=== PATIENT | female | born 1960 ===

== ENCOUNTER 2018-04-20 12:27 | Emergency (ER) | payer OTHER ==
[2018-04-20] MEDS ORDERED: Sodium Chloride 0.9% 1,000 ML IV STA (13:09)
--- NOTE | 2018-04-20 13:15 | ED PDOC ---
Syncope/Near Syncope/Dizziness Time Seen by Provider: 04/20/18 12:41 Chief Complaint (Nursing): Dizziness/Lightheaded Chief Complaint (Provider): Dizziness History Per: Patient History/Exam Limitations: no limitations Onset/Duration Of Symptoms: Hrs (prior to arrival) Current Symptoms Are (Timing): Better Fall Associated With With Symptoms: No Additional Complaint(s): Eugenie Aldridge is a 57 year old female, with a past medical history of anemia, who presents to the emergency department complaining of dizziness onset prior to arrival. Patient had a biopsy done today, and states after she woke up from it she began feeling dizzy and tremulous like she was about to faint. Patient reports feeling better now. She had a glass of milk for breakfast today. She denies any pain or other medical complaints. PMD: [facility] Past Medical History Reviewed: Historical Data, Nursing Documentation, Vital Signs - Medical History PMH: Anemia - Surgical History Surgical History: No Surg Hx - Family History Family History: States: Unknown Family Hx - Home Medications Home Medications: Ambulatory Orders Medication Instructions Recorded No Known Home Med 04/20/18 - Allergies Allergies/Adverse Reactions: Allergies Allergy/AdvReac Type Severity Reaction Status Date / Time No Known Allergies Allergy Verified 04/20/18 10:14 Review of Systems ROS Statement: Except As Marked, All Systems Reviewed And Found Negative Neurological: Positive for: Dizziness, Other (tremulous) Physical Exam - Reviewed Nursing Documentation Reviewed: Yes Vital Signs Reviewed: Yes - Physical Exam Appears: Positive for: No Acute Distress (anxious ) Head Exam: Positive for: ATRAUMATIC, NORMAL INSPECTION, NORMOCEPHALIC Skin: Positive for: Normal Color, Warm, Dry Eye Exam: Positive for: Normal appearance, EOMI, PERRL ENT: Positive for: Other (dry mucosa and lips) Neck: Positive for: Painless ROM, Supple Cardiovascular/Chest: Positive for: Regular Rate, Rhythm. Negative for: Murmur Respiratory: Positive for: Normal Breath Sounds. Negative for: Respiratory Distress Gastrointestinal/Abdominal: Positive for: Normal Exam, Soft. Negative for: Tenderness Extremity: Positive for: Normal ROM (upper and lower extremities). Negative for : Deformity, Swelling Lymphatic: Negative for: Adenopathy Neurologic/Psych: Positive for: Alert, Oriented. Negative for: Motor/Sensory Deficits - Laboratory Results Result Diagrams: 04/20/18 13:25 04/20/18 13:25 - Progress Re-evaluation Time: 14:10 Condition: Improved Medical Decision Making Medical Decision Making: Time: 12:41 Initial Impression: Dizziness Initial Plan: --CMP --CBC w/ differential --Sodium Chloride 1,000 ml IV 1,000 mls/hr --Reevaluation ----- Scribe Attestation: Documented by Jamaal Quinteros, acting as a scribe for Lia Rangel MD. Provider Scribe Attestation: All medical record entries made by the Scribe were at my direction and personally dictated by me. I have reviewed the chart and agree that the record accurately reflects my personal performance of the history, physical exam, medical decision making, and the department course for this patient. I have also personally directed, reviewed, and agree with the discharge instructions and disposition. Disposition - Clinical Impression Clinical Impression: Dizziness, Anxiety - Patient ED Disposition Is Patient to be Admitted: No Doctor Will See Patient In The: Office Counseled Patient/Family Regarding: Diagnosis, Need For Followup, Rx Given - Disposition Referrals: [facility] [Outside] Disposition: Routine/Home Disposition Time: 14:37 Condition: IMPROVED Instructions: Anxiety, Adult (DC), Dizziness, Nonvertigo, (DC) Forms: Parchment (Syriac) Print Language: PORTUGUESE
[2018-04-20 13:24] VITALS: PULSE 74; RESP 19; TEMP 97.5; O2SAT 99
[2018-04-20 13:38] LABS: BASO # 0.1 K/uL (0.0-0.2); BASO % 0.7 % (0.0-2.0); EOS # 0.3 K/uL (0.0-0.7); EOS % 2.5 % (0.0-4.0); HEMOGLOBIN 11.1 g/dL (12.0-16.0); LYMPH % 44.3 % (20.0-40.0); MEAN CELL VOLUME 87.6 fl (81.0-99.0); MEAN CORPUSCULAR HEMOGLOBIN 28.3 pg (27.0-31.0); MEAN CORPUSCULAR HGB CONC 32.3 g/dL (33.0-37.0); MEAN PLATELET VOLUME 10.1 fl (7.2-11.7); MONO # 0.6 K/uL (0.0-0.8); MONO % 5.1 % (0.0-10.0); NEUT # 5.4 K/uL (1.8-7.0); NEUT % 47.4 % (50.0-75.0); RBC 3.93 Mil/uL (3.80-5.20); RED CELL DISTRIBUTION WIDTH 13.9 % (11.5-14.5); WHITE BLOOD COUNT 11.3 K/uL (4.8-10.8)
[2018-04-20 13:46] LABS: ALB/GLOB RATIO 1.1 (1.0-2.1); ALBUMIN 4.5 g/dL (3.5-5.0); ALT/SGPT 37 U/L (9-52); AST/SGOT 33 U/L (14-36); BLOOD UREA NITROGEN 20 mg/dl (7-17); CALCIUM 9.1 mg/dL (8.4-10.2); GFR NON-AFRICAN AMERICAN > 60
[2018-04-20] MEDS ORDERED: Potassium Chloride 20 mEq ER Tab PO STA (14:14)
[2018-04-20] MEDS ORDERED: Potassium Chloride 20 mEq ER Tab PO ONE ×2 (14:33→14:37)
== END 2018-04-20 14:45 | disposition home or self-care (01) ==
LOC: SUPCPDRO 12:27 → H.ER 12:27
DX: R42 Dizziness and giddiness (principal); F41.9 Anxiety disorder, unspecified
CPT/HCPCS: 80053; 85025; 99284; J7030

== ENCOUNTER 2018-06-29 10:26 | Emergency (ER) | payer OTHER, SELFPAY ==
[2018-06-29 10:33] VITALS: BMI 22.6
[2018-06-29] MEDS ORDERED: Naproxen 500 MG TAB PO STA (11:18)
[2018-06-29] MEDS ORDERED: Naproxen 500 MG TAB PO ONE (11:54)
--- NOTE | 2018-06-29 12:33 | ED PDOC ---
HPI: Trauma/Fall - HPI Time Seen by Provider: 06/29/18 11:08 Chief Complaint (Nursing): Trauma Chief Complaint (Provider): Trauma History Per: Patient, Nutritional Health Coach ([id number]) History/Exam Limitations: no limitations Onset/Duration Of Symptoms: Days (x1) Additional Complaint(s): Eugenie Aldridge is a 57 year old female with a past medical history of anemia who is presenting to the ED for evaluation of headache and neck pain onset yesterday. Patient states that a metal sheila from her closet fell and hit her on the back of the head. She states that she thinks she lost consciousness for 10 minutes and woke up on her own and then got a drink of water. Patient states that the incident was unwitnessed and reports taking Ibuprofen at the time which relived her pain. Today, she complains of worsened neck pain, headache, and also noted her left ear was irritated. Patient denies any nausea, vomiting, change in vision, and sensory or neurologic deficit. PMD: [facility] Past Medical History Reviewed: Historical Data, Nursing Documentation, Vital Signs Vital Signs: Last Vital Signs Temp 97.8 F 06/29/18 10:34 Pulse 70 06/29/18 10:34 Resp 18 06/29/18 10:34 BP 110/70 06/29/18 10:34 Pulse Ox 100 06/29/18 10:34 - Medical History PMH: Anemia - Surgical History Surgical History: No Surg Hx - Family History Family History: States: Unknown Family Hx - Social History Current smoker - smoking cessation education provided: No Alcohol: None Drugs: Denies - Home Medications Home Medications: Ambulatory Orders Medication Instructions Recorded Ofloxacin Otic 0.3% [Floxin 0.3% 10 drop OT DAILY 7 Days #1 bottle 06/29/18 Otic Soln] - Allergies Allergies/Adverse Reactions: Allergies Allergy/AdvReac Type Severity Reaction Status Date / Time No Known Allergies Allergy Verified 04/20/18 10:14 Review of Systems ROS Statement: Except As Marked, All Systems Reviewed And Found Negative Eyes: Negative for: Vision Change Gastrointestinal: Negative for: Nausea, Vomiting Musculoskeletal: Positive for: Neck Pain Neurological: Positive for: Headache Physical Exam - Reviewed Nursing Documentation Reviewed: Yes Vital Signs Reviewed: Yes - Physical Exam Appears: Positive for: Well, Non-toxic, No Acute Distress Head Exam: Positive for: ATRAUMATIC (no visible or palpable trauma to head ), NORMAL INSPECTION, NORMOCEPHALIC Skin: Positive for: Normal Color, Warm, Dry Eye Exam: Positive for: Normal appearance, EOMI, PERRL ENT: Positive for: TM Is/Are (left TM with mild erythema of ear canal no bulging, no hemotympanum) Neck: Positive for: Normal, Painless ROM Cardiovascular/Chest: Positive for: Regular Rate, Rhythm. Negative for: Murmur Respiratory: Positive for: Normal Breath Sounds. Negative for: Respiratory Distress Gastrointestinal/Abdominal: Positive for: Normal Exam, Soft. Negative for: Tenderness Back: Positive for: Normal Inspection, Other (no tenderness to palpation of spine ). Negative for: L CVA Tenderness, R CVA Tenderness Extremity: Positive for: Normal ROM. Negative for: Deformity, Swelling Neurologic/Psych: Positive for: Alert, energy systems laboratory director II-XII (intact), Oriented. Negative for: Motor/Sensory Deficits - ECG O2 Sat by Pulse Oximetry: 100 (RA) Pulse Ox Interpretation: Normal Medical Decision Making Medical Decision Making: Time: 11:16 A/P: workup for traumatic injury to brain, head, cervical spine --Naproxen for pain --Reassess patient Scribe Attestation: Documented by Melva Ramirez, acting as a scribe for Pat Baum MD. Provider Scribe Attestation: All medical record entries made by the Scribe were at my direction and personally dictated by me. I have reviewed the chart and agree that the record accurately reflects my personal performance of the history, physical exam, medical decision making, and the department course for this patient. I have also personally directed, reviewed, and agree with the discharge instructions and disposition. 1530 CT brain and C-spine WNL. Pt with improved symptoms. PT to follow up with PMD. Tylenol for pain. Return parameters discussed. Discussed return precautions (Nutritional Health Coach # [id number]) Pt states the left ear pain has been progressive with several days and yesterday there was clear fluid draining from the ear. Re-evaluation shows intact TM, erythema of external ear canal. NO hemotympanum. No perf of TM. Rx for Ofloxacin Otic prescribed. Disposition - Clinical Impression Clinical Impression: Headache, Trauma - Disposition Referrals: [facility] [Outside] Disposition: Routine/Home Disposition Time: 15:34 Condition: IMPROVED Additional Instructions: Follow up with primary medical doctor in two weeks. Return to the emergency department if symptoms worsen or if new symptoms develop. Prescriptions: Ofloxacin Otic 0.3% [Floxin 0.3% Otic Soln] 10 drop OT DAILY 7 Days #1 bottle Instructions: Headache, Adult (DC), General Trauma (DC) Forms: [facility] (Polish), [facility] (Palestinian) Print Language: MACEDONIAN
--- NOTE | 2018-06-29 13:20 | CT ---
Date of service: 06/29/2018 PROCEDURE: CT HEAD WITHOUT CONTRAST. HISTORY: trauma to head with possible LOC and HERNADEZ COMPARISON: None available. TECHNIQUE: Axial computed tomography images were obtained through the head/brain without intravenous contrast. Radiation dose: Total exam DLP = 1842.55 mGy-cm. This CT exam was performed using one or more of the following dose reduction techniques: Automated exposure control, adjustment of the mA and/or kV according to patient size, and/or use of iterative reconstruction technique. FINDINGS: HEMORRHAGE: No intracranial hemorrhage. BRAIN: No mass effect or edema. No atrophy or chronic microvascular ischemic changes. VENTRICLES: Unremarkable. No hydrocephalus. CALVARIUM: Unremarkable. PARANASAL SINUSES: Mild bilateral maxillary sinus moderate mucosal thickening. MASTOID AIR CELLS: Unremarkable as visualized. No inflammatory changes. OTHER FINDINGS: None. IMPRESSION: No intracranial hemorrhage or mass effect. Paranasal sinus chronic appearing inflammatory changes.
--- NOTE | 2018-06-29 13:56 | CT ---
Date of service: 06/29/2018 PROCEDURE: CT Cervical Spine without contrast HISTORY: neck pain following head trauma COMPARISON: None available. TECHNIQUE: Axial computed tomography images were obtained of the cervical spine without the use of intravenous contrast. Coronal and sagittal reformatted images were created and reviewed. Radiation dose: Total exam DLP = 305.48 mGy-cm. This CT exam was performed using one or more of the following dose reduction techniques: Automated exposure control, adjustment of the mA and/or kV according to patient size, and/or use of iterative reconstruction technique. FINDINGS: VERTEBRAE: No fracture. Normal alignment. No destructive bony lesion. Trace anterior endplate ridging C5-6. DISCS/SPINAL CANAL/NEURAL FORAMINA: No significant central canal or neural foraminal stenosis. Discs heights are grossly preserved. PARASPINAL SOFT TISSUES: Unremarkable. OTHER FINDINGS: 13 mm hyperdense nodule posterior left thyroid lobe. Posterior subpleural septal lines right apex; no mass seen here. Left mastoid effusion. Mucosal thickening left smaller sphenoid air cell.. Mucosal thickening in each partially visualized maxillary sinus. Pneumatized right anterior clinoid process. There is prominent air in the esophagus and distally some probable mucous like material. Nonspecific should mostly shotty/benign-appearing bilateral cervical lymph nodes IMPRESSION: No cervical fracture or cervical lytic lesion seen. Minimal cervical spondylosis noted. No gross spinal stenosis seen. Distended esophagus. Clinical correlation in terms of excluding any distal esophageal lesions attributing to the proximal dilatation is advised. Comments: Study marked for PA review . Other findings as above.
[2018-06-29 15:22] VITALS: RESP 19
[2018-06-29 16:04] VITALS: BP 128/76; PULSE 78; TEMP 97.6; O2SAT 98
--- NOTE | 2018-07-02 17:09 | ED PDOC ---
ED Additional Note - Date & Time of Evaluation Date of Evaluation: 07/02/18 - Physician Additional Note Physician Additional Note: PA performing Reviews of Radiological exams: CT cervical spine from 06/29/18 shows: No cervical fracture or cervical lytic lesion seen. Minimal cervical spondylosis noted. No gross cervical stenosis noted. Distended esophagus. Clinical correlation in terms of excluding any distal esophageal attributed to the proximal dilatation is advised. I spoke with patient in Nepalese, who states that she has had some trouble swallowing as she feels food stuck in throat. NO N/V. She is able to swallow both solids and liquids. Patient advised to f/u with primary care provider for further evaluation. She was also advised to return to ED if she is unable to swallow or has N/V. Patient demonstrated understanding and stated that she would discuss with her daughter.
== END 2018-06-29 16:04 | disposition home or self-care (01) ==
LOC: H.ER 10:26
DX: R51 Headache (principal); D64.9 Anemia, unspecified

== ENCOUNTER 2018-07-06 09:44 | Emergency (ER) | payer SELFPAY ==
[2018-07-06 09:45] VITALS: BMI 22.6
[2018-07-06 09:49] VITALS: O2SAT 100
--- NOTE | 2018-07-06 10:19 | ED PDOC ---
HPI: General Adult Additional Complaint(s): Pt seen and examined at bedside with attending. 57F no significant PMH/PSH p/w being called back for findings of a dilated esophagus on cervical spine CT work-up for other problem 06/29/2018. Patient d enies cough, hemoptysis, smoking history, personal/family history of GI cancers. She does endorse that she has difficulty swallowing food with feelings of difficulty passing but denies ever regurgitating food and denies any problems with swallowing liquids. In addition, she has not noted any voice changes and has chronic sinus problems. PMD: None PMH: LEFT breast/LN bx March/2018 pathology negative for malignancy PSH: None SHx: Denies alcohol, smoking, drugs ALL: NKDA <Becky Hanson - Last Filed: 07/06/18 16:36> <Mark Centeno Y - Last Filed: 07/12/18 18:47> Time Seen by Provider: 07/06/18 10:00 Chief Complaint (Nursing): Abnormal Labs Supervising Attending Note - Supervising Attending Note The Documented history was done by the: Physician Nutrition Services Aide The documented physical exam was done by the: Physician Nutrition Services Aide The documented procedures were done by the: Physician Nutrition Services Aide - Attestation: I have personally seen and examined this patient.: Yes I have fully participated in the care of the patient.: Yes I have reviewed all pertinent clinical information, including history, physical exam and plan: Yes - Notes: Notes:: pt seen by myself. dedicated CTc/a/p done and showed possible mass. pt is asymptomatic however. dr tubbs notified, patient will follow up iwth him. or in [facility] depending on insurance status. pt stable for dc. <Mark Centeno Y - Last Filed: 07/12/18 18:47> Past Medical History Vital Signs: Last Vital Signs Temp 36.6 C 07/06/18 09:48 Pulse 77 07/06/18 09:48 Resp 17 07/06/18 09:48 BP 104/64 07/06/18 09:48 Pulse Ox 100 07/06/18 09:48 - Medical History PMH: Anemia - Family History Family History: States: Unknown Family Hx <Becky Hanson - Last Filed: 07/06/18 16:36> Vital Signs: Last Vital Signs Temp 97.8 F 07/06/18 09:48 Pulse 77 07/06/18 09:48 Resp 17 07/06/18 09:48 BP 104/64 07/06/18 09:48 Pulse Ox 100 07/06/18 10:42 <Mark Centeno Y - Last Filed: 07/12/18 18:47> - Home Medications Home Medications: Ambulatory Orders Medication Instructions Recorded RX: Ofloxacin Otic 0.3% [Floxin 10 drop OT DAILY 7 Days #1 bottle 06/29/18 0.3% Otic Soln] - Allergies Allergies/Adverse Reactions: Allergies Allergy/AdvReac Type Severity Reaction Status Date / Time No Known Allergies Allergy Verified 04/20/18 10:14 Review of Systems ROS Statement: Except As Marked, All Systems Reviewed And Found Negative Gastrointestinal: Positive for: Other (dysphagia, abdominal distention) <Becky Hanson - Last Filed: 07/06/18 16:36> Physical Exam - Reviewed Vital Signs Reviewed: Yes - Physical Exam Appears: Positive for: Well, Non-toxic, No Acute Distress Head Exam: Positive for: ATRAUMATIC, NORMAL INSPECTION Skin: Positive for: Normal Color, Warm, Dry Eye Exam: Positive for: Normal appearance, EOMI Neck: Positive for: Supple Cardiovascular/Chest: Positive for: Regular Rate, Rhythm. Negative for: JVD Respiratory: Positive for: Normal Breath Sounds, Wheezing (bilateral). Negative for: Accessory Muscle Use, Respiratory Distress Gastrointestinal/Abdominal: Positive for: Bowel Sounds, Soft, Tenderness (mild epigastric) Extremity: Positive for: Normal ROM. Negative for: Pedal Edema, Calf Tenderness Neurologic/Psych: Positive for: Alert, Oriented <Becky Hanson - Last Filed: 07/06/18 16:36> - Laboratory Results Result Diagrams: 07/06/18 10:32 07/06/18 10:32 - ECG O2 Sat by Pulse Oximetry: 100 <Becky Hanson - Last Filed: 07/06/18 16:36> - Laboratory Results Result Diagrams: 07/06/18 10:32 07/06/18 10:32 <Mark Centeno Y - Last Filed: 07/12/18 18:47> Medical Decision Making Medical Decision Making: Incidental finding of dilated esophagus without significant history smoking or cancer, but Lymph Abs elevated and reports mild dysphagia mass vs. achalasia vs. Barretts vs. stricture. - CBC, CMP - CT chest/abdomen/pelvis w/ PO/IV contrast 1505 - CT abd/pelvis significant for colonic stool load and fatty liver with LEFT lobe simple cyst. - Awaiting CT chest 1615 - Spoke with Dr Lewis re: CT chest and patient will require further work as an outpatient. - Application for [facility] paperwork provided - [facility] appt provided at ER discharge 07/08/2018 @ 1520 <Becky Hanson - Last Filed: 07/06/18 16:36> Medical Decision Making: Dr. Centeno evaluated patient in the ED who was recalled in for CT after findings of esophageal dilation were obtained. Patient presented with mild epigastric tenderness to palpation on exam. Will perform CT. <Mark Centeno - Last Filed: 07/12/18 18:47> Disposition <Becky Hanson - Last Filed: 07/06/18 16:36> - Patient ED Disposition Is Patient to be Admitted: No Counseled Patient/Family Regarding: Studies Performed, Diagnosis, Need For Followup - Disposition Disposition: Routine/Home Disposition Time: 16:25 <Mark Centeno - Last Filed: 07/12/18 18:47> - Clinical Impression Clinical Impression: Esophageal mass - Disposition Referrals: FAMILY PROVIDER,MERE [Primary Care Provider] - 07/08/18 3:00 pm Cole Tubbs MD [Staff Provider] - Condition: IMPROVED Additional Instructions: follow up in the clinic at the appt in two days as instructed also follow up with GI doctor Dr Tubbs this week without fail return to the ED with any worsening or concerning symptoms Instructions: Esophageal Stricture Forms: [facility] (Cape Verdean), [facility] (Ukrainian) Print Language: FRENCH
[2018-07-06] MEDS ORDERED: Iohexol 240 (50 ml) ONE (10:31)
[2018-07-06] MEDS ORDERED: Iohexol 240 (50 ml) PO ONE (10:32)
[2018-07-06 10:35] LABS: BASO # 0.1 K/uL (0.0-0.2); BASO % 0.9 % (0.0-2.0); EOS # 0.3 K/uL (0.0-0.7); EOS % 4.4 % (0.0-4.0); HEMOGLOBIN 10.4 g/dL (12.0-16.0); LYMPH % 43.5 % (20.0-40.0); MEAN CELL VOLUME 89.3 fl (81.0-99.0); MEAN CORPUSCULAR HEMOGLOBIN 29.1 pg (27.0-31.0); MEAN CORPUSCULAR HGB CONC 32.6 g/dL (33.0-37.0); MEAN PLATELET VOLUME 8.8 fl (7.2-11.7); MONO # 0.5 K/uL (0.0-0.8); MONO % 6.5 % (0.0-10.0); NEUT # 3.1 K/uL (1.8-7.0); NEUT % 44.7 % (50.0-75.0); NRBC % 0.1 % (0.0-0.0); RBC 3.59 Mil/uL (3.80-5.20); RED CELL DISTRIBUTION WIDTH 13.9 % (11.5-14.5); WHITE BLOOD COUNT 6.9 K/uL (4.8-10.8)
[2018-07-06 10:45] LABS: ALBUMIN 4.1 g/dL (3.5-5.0); ALT/SGPT 39 U/L (9-52); AST/SGOT 29 U/L (14-36); BLOOD UREA NITROGEN 19 mg/dl (7-17); CALCIUM 8.7 mg/dL (8.4-10.2); GFR NON-AFRICAN AMERICAN > 60
[2018-07-06] MEDS ORDERED: Iohexol 300 100 ML IJ ONE (12:58)
[2018-07-06] MEDS ORDERED: Sodium Chloride 0.9% 50 ML IV ONE (12:58)
--- NOTE | 2018-07-06 14:48 | CT ---
Date of service: 07/06/2018 PROCEDURE: CT Abdomen and Pelvis with contrast HISTORY: Dysphagia COMPARISON: None available. TECHNIQUE: CT scan of the abdomen and pelvis was performed after administration of intravenous contrast. Oral contrast was administered. Coronal and sagittal reformatted images were obtained. Contrast dose: 96 cc Omnipaque Radiation dose: Total exam DLP = 301.29 mGy-cm. This CT exam was performed using one or more of the following dose reduction techniques: Automated exposure control, adjustment of the mA and/or kV according to patient size, and/or use of iterative reconstruction technique. FINDINGS: LOWER THORAX: There is dependent atelectasis in the lung bases. LIVER: Normal in size with homogeneous enhancement. No gross lesion or ductal dilatation. GALLBLADDER AND BILE DUCTS: Well distended. No calcified gallstones, wall thickening or pericholecystic fluid. PANCREAS: Mild hepatomegaly and fatty. There is a 2.6 x 2.4 cm simple cyst in the left hepatic lobe and a 1.1 cm simple cyst in the medial left hepatic lobe anteriorly. Few scattered tiny low-attenuation areas in the liver are too small to characterize by CT criteria. No ductal dilatation. SPLEEN: Mild splenomegaly. Normal enhancement. ADRENALS: No discrete nodule. KIDNEYS AND URETERS: Normal in size with homogeneous enhancement. No hydronephrosis. No solid mass. VASCULATURE: No aortic aneurysm. BOWEL: The small bowel loops are normal in caliber. There is large amount of stool in the colon. No bowel dilatation or wall thickening. No bowel obstruction. APPENDIX: Normal pelon. Endix. PERITONEUM: No free fluid. No free air. LYMPH NODES: No enlarged lymph nodes. BLADDER: Well distended and normal in appearance. REPRODUCTIVE: The uterus is normal in size. BONES: No acute fracture. Within normal limits for the patient's age. Mild degenerative disc disease at L5-S1. OTHER FINDINGS: None. IMPRESSION: No acute abdominal or pelvic abnormality. Fatty liver 2.6 x 2.4 cm simple cyst in the left hepatic lobe. Mild splenomegaly. Constipation. No evidence of bowel obstruction.
[2018-07-06 15:42] VITALS: BP 103/62; PULSE 64; RESP 18; TEMP 98.1
--- NOTE | 2018-07-06 16:28 | CT ---
Date of service: 07/06/2018 PROCEDURE: CT Chest without contrast HISTORY: DYSPHAGIA COMPARISON: None available. TECHNIQUE: Contiguous axial images were obtained through the chest without intravenous contrast enhancement. Sagittal and coronal reconstructions were performed. Radiation dose: Total exam DLP = 153.68 mGy-cm. This CT exam was performed using one or more of the following dose reduction techniques: Automated exposure control, adjustment of the mA and/or kV according to patient size, and/or use of iterative reconstruction technique. FINDINGS: LUNGS: Clear lungs. No consolidation. A of the posterior guided near pleural-based calcified granuloma in the right lung is noted. Is also likely a even smaller calcified granuloma in the right lung on series 3, image 48 an a 4 to 5 mm more pleural-based nodule not grossly obviously calcified also noted (axial series 3, image 51. If low risk patient no follow-up needed per updated 2017 Fleischner Society guidelines. If high risk patient consider optional CT at 12 months. Bilateral patchy uneven attenuation mosaicism is suggested mostly in a dependent fashion findings are consistent with air trapping and or ventilation perfusion slight mismatches. Findings are nonspecific. MEDIASTINUM: Unremarkable thoracic aorta. No aneurysm. The ascending aorta measures approximately 3 cm. Normal sized heart. Main pulmonary artery unremarkable. No vascular congestion. There are multiple is Gould all and a few are more shotty appearing bilateral hilar lymph nodes suspect. The largest appears precarinal mediastinal measuring with a short axis of not a 9 mm x 12 mm. This is not believe intrinsically suspicious. However there are multiple bilateral very prominent and numerous axillary lymph nodes present these were biopsied on 04/20/2018 yielding fragments of reactive lymphoid tissue. No RS cells no metastatic malignancy no granuloma Noted within the lymph node. Flow cytometry analysis interpretation: Lymph node, left axilla cells suspension: No immuno phenotypic evidence of lymphoproliferative disorder There is absence of aortic atherosclerotic calcification and mural plaque on this cross-sectional study. As noted previously the mid to proximal thoracic esophagus is dilated-a intraluminal or obstructing mass at this level needs to be considered. Distally the thoracic esophagus is not distended. Dr. Camargo was in attendance aware of these findings reviewing the case. PLEURA: No pleural fluid. No pneumothorax. BONES: No fracture. No destructive lesion. UPPER ABDOMEN: Liver cysts present please note the same-day CT abdomen and pelvic report OTHER FINDINGS: None. IMPRESSION: Reason for this exam is the follow-up note of a dilated esophagus seen on a cervical spine study. The mid to proximal thoracic esophagus is distended and an intraluminal transit obstructing mass or stricture here needs to be considered. Gastroenterology consultation recommended. Bilateral axillary lymphadenopathy-prior ultrasound-guided biopsy results as described above. Clinical correlation follow-up recommended. Other findings as above. Dr. Camargo was in attendance aware of these findings reviewing the case.
== END 2018-07-06 17:12 | disposition home or self-care (01) ==
LOC: SUPCPDRO 09:44 → H.ER 09:44
DX: K22.9 Disease of esophagus, unspecified (principal)
CPT/HCPCS: 71250; 74177; 80053; 85025; 99282; Q9966; Q9967

== ENCOUNTER 2018-08-04 08:33 | Day surgery (SDC) | payer SELFPAY ==
[2018-08-04 09:21] VITALS: BMI 24.2
[2018-08-04 09:27] VITALS: O2SAT 100
[2018-08-04] MEDS ORDERED: Propofol 10 mg/ml Inj (20 ML) ONE (10:20)
[2018-08-04] MEDS ORDERED: ePHEDrine 50 mg/ml Inj ONE (10:32)
[2018-08-04 10:46] VITALS: TEMP 98
[2018-08-04 11:02] VITALS: BP 100/53; PULSE 73; RESP 16
== END 2018-08-04 11:30 | disposition home or self-care (01) ==
LOC: H.ENDO 08:33
PROVIDERS: ATTEND Internal Medicine Gastroenterology
DX: R13.10 Dysphagia, unspecified (principal); K31.89 Other diseases of stomach and duodenum; K29.50 Unspecified chronic gastritis without bleeding
CPT/HCPCS: 43239; 88305; J2001; J2704

== ENCOUNTER 2018-08-08 09:35 | Emergency (ER) | payer SELFPAY ==
[2018-08-08 09:41] VITALS: RESP 18; O2SAT 99
--- NOTE | 2018-08-08 10:50 | ED PDOC ---
HPI: General Adult Time Seen by Provider: 08/08/18 10:00 Chief Complaint (Nursing): ENT Problem Chief Complaint (Provider): Throat Pain History Per: Patient, Instructional Leader (Ronak, #[id number]) History/Exam Limitations: no limitations Onset/Duration Of Symptoms: Persistent Current Symptoms Are (Timing): Still Present Additional Complaint(s): 57 year old female presents to the ED for evaluation of throat pain making it hard to swallow or breath for about two weeks associated with intermittent fever. Patient notes that she had an endoscopy with dr tubbs on 08/04 second jenelle to his diagnosis of dysphagia and esophageal dilation, but does not find out the results until her follow up appointment on 08/25. Otherwise denies vomiting and cough. PMD: Cole Tubbs Past Medical History Reviewed: Historical Data, Nursing Documentation, Vital Signs Vital Signs: Last Vital Signs Temp 97.5 F L 08/08/18 09:40 Pulse 68 08/08/18 09:40 Resp 18 08/08/18 09:40 BP 105/62 08/08/18 09:40 Pulse Ox 99 08/08/18 09:40 - Medical History PMH: COPD Denies: Anemia, HIV, Hyperthyroidism, Hypothyroidism, Kidney Stones, Chronic Kidney Disease - Surgical History Surgical History: Endoscopy - Family History Family History: States: Unknown Family Hx - Social History Current smoker - smoking cessation education provided: No Alcohol: None Drugs: Denies - Home Medications Home Medications: Ambulatory Orders Medication Instructions Recorded RX: Albuterol HFA [Ventolin HFA 90 1 - 2 puff IH Q4H PRN #1 bottle 08/08/18 mcg/actuation (8 g)] - Allergies Allergies/Adverse Reactions: Allergies Allergy/AdvReac Type Severity Reaction Status Date / Time No Known Allergies Allergy Verified 04/20/18 10:14 Review of Systems ROS Statement: Except As Marked, All Systems Reviewed And Found Negative Constitutional: Positive for: Fever (intermittent) ENT: Positive for: Throat Pain (associated with difficulty swallowing and breathing) Respiratory: Negative for: Cough Gastrointestinal: Negative for: Vomiting Physical Exam - Reviewed Nursing Documentation Reviewed: Yes Vital Signs Reviewed: Yes - Physical Exam Appears: Positive for: No Acute Distress Head Exam: Positive for: ATRAUMATIC, NORMOCEPHALIC Skin: Positive for: Normal Color. Negative for: Rash Eye Exam: Positive for: Normal appearance ENT: Positive for: Normal ENT Inspection, Other (clear oropharynx). Negative for: Pharyngeal Erythema, Tonsillar Exudate, Tonsillar Swelling Neck: Positive for: Normal, Painless ROM, Supple Cardiovascular/Chest: Positive for: Regular Rate, Rhythm Respiratory: Positive for: Normal Breath Sounds. Negative for: Respiratory Distress Gastrointestinal/Abdominal: Positive for: Normal Exam, Soft, Tenderness (mild epigastric) Back: Positive for: Normal Inspection Extremity: Positive for: Normal ROM Neurologic/Psych: Positive for: Alert (no trouble breathing, no labored breathing), service cashier II-XII, Oriented (x3) Comments: pt has obvious raspy voice - Laboratory Results Result Diagrams: 08/08/18 10:50 08/08/18 10:50 - ECG O2 Sat by Pulse Oximetry: 99 (RA) Pulse Ox Interpretation: Normal Medical Decision Making Medical Decision Making: Time: 104 Initial Impression: dysphagia- acute on chronic Initial Plan: --CMP --CBC with differential --CXR --Rapid strep --Throat culture 1101 CXR FINDINGS: LINES AND TUBES: None. LUNG AND PLEURA: The lungs are hyperinflated and there is peribronchial thickening with chronic changes in both lungs. There is a small calcified nodule in the right lower lobe. No pleural effusion or pneumothorax. HEART AND MEDIASTINUM: The heart is not enlarged. No aortic atherosclerotic calcification present. The hilar and mediastinal contours are within normal limits. SKELETAL STRUCTURES: The bony structures are within normal limits for the patient's age. VISUALIZED UPPER ABDOMEN: Normal. OTHER FINDINGS: None. IMPRESSION: No active pulmonary disease. COPD. [address] Tubbs who reports the endoscopy does not have any significant findings. suggest neck imaghing and outpatient ENT follow up. Albuterol nebulizer treatment ordered with peak flow pre/post. which the pt states helped her a lot. Neck soft tissue CT without contrast additionally ordered. 1317 CT Neck FINDINGS: Please note this examination is limited in the absence of intravenous contrast. NASOPHARYNX: Within normal limits. SUPRAHYOID NECK: No bulky mass in the oropharynx, oral cavity, parapharyngeal space and retropharyngeal space. There are multiple metallic clips below the hard palate. INFRAHYOID NECK: No bulky mass in the larynx, hypopharynx, and supraglottic space. Vocal cords intact. MASS: No bulky mass. GLANDS: Parotid and submandibular glands unremarkable. Multinodular thyroid gland. LYMPH NODES: There are prominent subcentimeter cervical chain lymphadenopathy. There are enlarged right axillary and subpectoral lymph nodes, the largest right axillary lymph node measures 2.1 by 1.8 cm. CERVICAL SPINE: No fracture or focal lesion. Within normal limits for the patient's age. OTHER FINDINGS: There is biapical pleural parenchymal scarring. The visualized lungs are clear. There is moderate right and mild left polypoid mucosal thickening in the maxillary sinuses and mild mucosal thickening in the left posterior ethmoid air cells. The remaining included paranasal sinuses are predominantly clear. There is a left mastoid effusion. IMPRESSION: 1. Limited examination in the absence of intravenous contrast. Allowing for this, no bulky mass. Multiple metallic clips below the hard palate. 2. Enlarged right axillary and subpectoral lymph nodes, the largest right axillary lymph node measures 2.1 cm. Nonspecific and may be reactive, infectious, inflammatory in etiology. Neoplastic etiology is not entirely excluded. Clinical follow-up is advised. 3. Multinodular thyroid gland. A dedicated thyroid ultrasound on a nonemergent basis is recommended for complete evaluation. 4. Chronic maxillary and left ethmoid sinusitis and left mastoid effusion. 15:07 --Discussed results with patient using [email or web address] tap builder #[id number]. Patient is aware of need for follow up with both ENT and health information manager due to CT results showing an enlarged thyroid. Patient reports improvement of symptoms with nebulizer treatment. Will be discharged. pt feels improved. sleeping on reeval. comfortably breathing. no labored. awake and alert. patent airway. aware of results and need to follow up on thyroid issue. pt tolearted po. Scribe Attestation: Documented by Eboni Watkins acting as a scribe for Mark Centeno MD. Provider Scribe Attestation: All medical record entries made by the Scribe were at my direction and p ersonally dictated by me. I have reviewed the chart and agree that the record accurately reflects my personal performance of the history, physical exam, medical decision making, and the department course for this patient. I have also personally directed, reviewed, and agree with the discharge instructions and disposition. Disposition - Clinical Impression Clinical Impression: Throat pain in adult - Patient ED Disposition Is Patient to be Admitted: No Counseled Patient/Family Regarding: Studies Performed, Diagnosis, Need For Followup - Disposition Referrals: Courtney Zabala MD [Medical Doctor] - Bryn Menendez MD [Staff Provider] - Disposition: Routine/Home Disposition Time: 15:10 Condition: IMPROVED Additional Instructions: follow up with ENT doctor and health information manager as well (DR ZABALA) for further evaluation return to the ED with any worsening or concerning symptoms Prescriptions: RX: Albuterol HFA [Ventolin HFA 90 mcg/actuation (8 g)] 1 - 2 puff IH Q4H PRN #1 bottle PRN Reason: Wheezing Instructions: Sore Throat, Adult (DC) Forms: [employer] (Luxembourgish) Print Language: MACEDONIAN
--- NOTE | 2018-08-08 11:05 | RAD ---
Date of service: 08/08/2018 HISTORY: Shortness of breath COMPARISON: CT chest without contrast from 07/06/2018. TECHNIQUE: Chest PA and lateral FINDINGS: LINES AND TUBES: None. LUNG AND PLEURA: The lungs are hyperinflated and there is peribronchial thickening with chronic changes in both lungs. There is a small calcified nodule in the right lower lobe. No pleural effusion or pneumothorax. HEART AND MEDIASTINUM: The heart is not enlarged. No aortic atherosclerotic calcification present. The hilar and mediastinal contours are within normal limits. SKELETAL STRUCTURES: The bony structures are within normal limits for the patient's age. VISUALIZED UPPER ABDOMEN: Normal. OTHER FINDINGS: None. IMPRESSION: No active pulmonary disease. COPD.
[2018-08-08 11:14] LABS: ALBUMIN 4.1 g/dL (3.5-5.0); ALT/SGPT 24 U/L (9-52); AST/SGOT 28 U/L (14-36); BLOOD UREA NITROGEN 20 mg/dl (7-17); CALCIUM 8.9 mg/dL (8.4-10.2); GFR NON-AFRICAN AMERICAN > 60
[2018-08-08 11:19] LABS: BASO # 0.1 K/uL (0.0-0.2); BASO % 0.9 % (0.0-2.0); EOS # 0.2 K/uL (0.0-0.7); EOS % 3.1 % (0.0-4.0); HEMOGLOBIN 11.2 g/dL (12.0-16.0); LYMPH # 3.5 K/uL (1.0-4.3); LYMPH % 43.9 % (20.0-40.0); MEAN CELL VOLUME 88.7 fl (81.0-99.0); MEAN CORPUSCULAR HEMOGLOBIN 29.1 pg (27.0-31.0); MEAN CORPUSCULAR HGB CONC 32.7 g/dL (33.0-37.0); MEAN PLATELET VOLUME 9.6 fl (7.2-11.7); MONO # 0.5 K/uL (0.0-0.8); MONO % 6.5 % (0.0-10.0); NEUT # 3.6 K/uL (1.8-7.0); NEUT % 45.6 % (50.0-75.0); NRBC % 0.1 % (0.0-0.0); RBC 3.85 Mil/uL (3.80-5.20); RED CELL DISTRIBUTION WIDTH 13.6 % (11.5-14.5); WHITE BLOOD COUNT 7.9 K/uL (4.8-10.8)
[2018-08-08] MEDS ORDERED: Albuterol 0.083% Inhal Sol (2.5 mg/3 mL) UD INH ONE (12:53)
[2018-08-08] MEDS ORDERED: Albuterol 0.083% Inhal Sol (2.5 mg/3 mL) UD ONE (13:13)
--- NOTE | 2018-08-08 13:51 | CT ---
Date of service: 08/08/2018 PROCEDURE: CT NECK WITHOUT CONTRAST HISTORY: dysphagia COMPARISON: None available. TECHNIQUE: CT of the neck without intravenous contrast. Coronal and sagittal reformats generated. Radiation dose: Total exam DLP = 272.49 mGy-cm. This CT exam was performed using one or more of the following dose reduction techniques: Automated exposure control, adjustment of the mA and/or kV according to patient size, and/or use of iterative reconstruction technique. FINDINGS: Please note this examination is limited in the absence of intravenous contrast. NASOPHARYNX: Within normal limits. SUPRAHYOID NECK: No bulky mass in the oropharynx, oral cavity, parapharyngeal space and retropharyngeal space. There are multiple metallic clips below the hard palate. INFRAHYOID NECK: No bulky mass in the larynx, hypopharynx, and supraglottic space. Vocal cords intact. MASS: No bulky mass. GLANDS: Parotid and submandibular glands unremarkable. Multinodular thyroid gland. LYMPH NODES: There are prominent subcentimeter cervical chain lymphadenopathy. There are enlarged right axillary and subpectoral lymph nodes, the largest right axillary lymph node measures 2.1 by 1.8 cm. CERVICAL SPINE: No fracture or focal lesion. Within normal limits for the patient's age. OTHER FINDINGS: There is biapical pleural parenchymal scarring. The visualized lungs are clear. There is moderate right and mild left polypoid mucosal thickening in the maxillary sinuses and mild mucosal thickening in the left posterior ethmoid air cells. The remaining included paranasal sinuses are predominantly clear. There is a left mastoid effusion. IMPRESSION: 1. Limited examination in the absence of intravenous contrast. Allowing for this, no bulky mass. Multiple metallic clips below the hard palate. 2. Enlarged right axillary and subpectoral lymph nodes, the largest right axillary lymph node measures 2.1 cm. Nonspecific and may be reactive, infectious, inflammatory in etiology. Neoplastic etiology is not entirely excluded. Clinical follow-up is advised. 3. Multinodular thyroid gland. A dedicated thyroid ultrasound on a nonemergent basis is recommended for complete evaluation. 4. Chronic maxillary and left ethmoid sinusitis and left mastoid effusion.
[2018-08-08 16:15] VITALS: BP 110/66; PULSE 62; TEMP 98
== END 2018-08-08 15:20 | disposition home or self-care (01) ==
LOC: H.ER 09:35
DX: J02.9 Acute pharyngitis, unspecified (principal); J44.9 Chronic obstructive pulmonary disease, unspecified